=== PATIENT | female | born 1960 | race Caucasian/White ===

== ENCOUNTER 2022-02-20 13:47 | Outpatient (CLI) | payer MEDICARE, SELFPAY ==
--- NOTE | ~2022-02-20 | CT_ITS ---
EXAMINATION: CT brain wo con DATE: 02/20/2022 14:24 INDICATION: Left forehead knot TECHNIQUE: Computed tomography (CT) of the head was performed without intravenous contrast. The mA wa s adjusted according to patient size. Iterative reconstruction technique was employed. Exam dose: 60 5.33 mGy-cm total exam DLP. COMPARISON: None FINDINGS: No fracture or bone destruction of the skull. Included paranasal sinuses and mastoid air ce lls are normally developed and aerated. No cephalohematoma is identified. Orbital contents are unrema rkable. No intraconal or extraconal mass lesion is noted. Bilateral vertebral artery and carotid siphon internal carotid artery calcifications are noted. No intracranial mass lesion or hemorrhage or cerebrovascular accident is evident. No midline shift or mass effect. Normal ventricular size. Minimal left basal ganglia calcification. No subdural or epidural hematoma. IMPRESSION: No skull fracture or bone destruction Cerebral atherosclerosis Reviewed, dictated and finalized at [facility]. Reviewed, dictated and finalized at [facility].
== END 2022-02-20 13:48 | disposition home or self-care (01) ==
PROVIDERS: PCP Family Medicine; Visit Provider Neurological Surgery
DX: M89.9 Disorder of bone, unspecified (principal); I67.2 Cerebral atherosclerosis
CPT/HCPCS: 70450